=== PATIENT | female | born 1990 | race Caucasian/White ===

== ENCOUNTER 2025-07-24 14:53 | Outpatient (AMB) | payer OTHER, SELFPAY ==
--- NOTE | 2025-07-24 14:55 | A.OFFVIS_ITS ---
Vital Signs 07/24/25 15:05 Height 5 ft 5 in Weight 180 lb BMI 30.0 BP 159/99 H Blood Pressure Location Rt brachial Position Sitting Respiration 16 Pulse 93 Pulse Source Pulse Oximeter Intake Visit Reasons: PER MZK/ NEW MIGRAINE RX? Clinical Support Associate Required: Yes Clinical Support Associate Services: Clinical Support Associate Present Clinical Support Associate Name: Jono ID [id number] Information Interpreted: non-clinical & clinical Accompanied by: Father in Law Allergies No Known Allergies Allergy (Verified 07/24/25 15:05) HPI Comments Details: Nataliya is a 34-year-old female patient with a past medical history of pineal cyst and migraine who was last seen in the clinic in January of 2025. At that time it is noted that in the past with the she has had relief of her headaches. Most recently she was placed back on topiramate 50 mg daily however she has had some difficulty in taking these medications. She had an MRI in 2019 which showed a pineal cyst but was otherwise normal. She is currently experiencing headaches on a daily basis lasting at least 12 h ours throughout the day. She will often awaken from sleep around 3am with a headache and then take sumatriptan. For several hours she may have some improvement but headaches often return later that day. She has been taking sumatriptan on average 3 days per week. She will often take the sumatriptan with alive. Headaches are described as pounding and can be variable in terms of intensity. They are primarily located to the left frontal area. When headaches become severe, she can have nausea and vomiting. She denies any light or sound sensitivities or dizziness. She does not have any visual changes or visual auras. Sleep: Sleep can be difficult because she does have an 8-month-old child and another younger child at home. She does not snore that she is aware of. Past medication trials: Amitriptyline- No significant benefit Topiramate- No significant benefit Propranolol- No significant benefit Sumatriptan-works well in conjunction with Aleve. 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 Left frontal white matter periventricular nonenhancing lesion. [facility] Medical History (Updated 07/27/25 @ 09:20 by Nany Wilkerson CNP) Stress Insomnia Obesity Migraine without aura Review of Systems Const All systems reviewed & are unremarkable except as noted in HPI and below Physical Exam Vital Signs: Last Vital Signs Pulse 93 07/24/25 15:05 Resp 16 07/24/25 15:05 BP 159/99 H 07/24/25 15:05 BMI result Body Mass Index 30.0 Const General: cooperative, healthy appearing, comfortable and no acute distress Nutritional Appearance: well nourished Orientation/consciousness: patient oriented x3 Limitations: no limitations HEENT Head: Yes normal to inspection and Yes normocephalic Eyes General: appearance normal, both eyes and all related structures Visual Mohr: normal visual mohr by confrontation Alignment and Position: alignment normal Periorbital: periorbital findings normal Eyelids: Yes eyelids normal Conjunctivae: conjunctivae normal Sclerae: sclerae normal Neck Neck: Yes normal visual inspection and Yes full ROM General: Yes no CVA tenderness Back/Spine/Pelvis Back: no CVA tenderness Cervical Spine: normal cervical lordosis Thoracic/Lumbar Spine: thoracic and lumbar spine normal to inspection Neuro General: patient oriented x3 Cranial nerves: Yes CN's II-XII intact bilaterally Cognition (Neuro): normal cognition Gait exam (Neuro): Normal gait present Motor exam (neuro): no tremor noted Pupils: Normal pupillary reactivity/response: bilateral Psych Appearance: grossly normal Mental Status: mental status grossly normal Speech and movement: Normal speech and movement present and Clear speech present Affect: normal affect Attitude: cooperative Thought process: Normal thought process present Thought content: Normal thought content present Insight: Good insight present (Psych) Judgement: Good judgement present (Psych) Assessment & Plan Assessment & Plan (1) Chronic migraine without aura without status migrainosus, not intractable: Code(s): G43.709 - Chronic migraine without aura, not intractable, without status migrainosus Category: Medical Plan Nataliya is a 34-year-old female patient with a past medical history of pineal cyst and migraine who has been more recently experiencing more frequent migraines. She was not able to take/tolerate the topiramate given to her at last visit. She would prefer a medication that is not required to take daily. I will start her on a trial of Aimovig 70 mg monthly. There was likely some level of medication overuse headache given her frequent use of sumatriptan. She was educated on this and asked to limit the use of sumatriptan to no more than 2-3 days per week. I am hoping that with the Aimovig she is able to reduce its use. Sleep has also been difficult which may be playing a role. Because she does have history of a pineal cyst and she has not had any recent imaging, I will order an MRI of the brain with and without contrast in the setting of worsening headache to evaluate the previous findings. She does report vomiting in the past with prior MRIs with contrast. I will send premed rx to her pharmacy. -Limit the use of sumatriptan to no more than 2-3 days per week to avoid MOH -Start a trial of Aimovig 70mc sc monthly injection -MRI brain with and without contrast to evaluate previous findings -Reports possible vomiting with contrast in the past. Will send medications for pre-med Coding Level of Care Code Est Pt Level 4 (50156) Diagnoses Chronic migraine without aura without status migrainosus, not intractable G43.709
--- OUTSIDE RECORDS SUMMARY | 2025-07-24 14:57 | XMS_ITS | Clinical Summary ---
Author Organization [address] Address [address] [place] [phone] Phone Care Team Providers Care Caster Operator Name Role Phone Gee Colon MD Primary Care Provider [phone] Allergies No known active allergies Medications ketoconazole (NIZORAL) 2 % shampoo Apply 5-10 mL to wet scalp, lather, leave on 3-5 minutes, and rinse; apply 2x weekly for 2-4 weeks Active norethindrone (NICOLETTE,AGATA,H EATHER,MICRONOR ) 0.35 mg tablet Take 1 tablet (0.35 mg total) by mouth 1 (one) time each day. 5 Active triamcinolone (KENALOG) 0.025 % cream Apply thin layer to affected area BID for 2 weeks then stop. Avoid face and groin. 30 g 5 Active ceramide 1,3,6-II-salicy lic-B3 (CeraVe SA, with niacinamide,) cream Apply 2 g topically 2 (two) times a day. 200 g 1 5 Active ammonium lactate (AmLactin) 12 % lotion Apply topically if needed for dry skin (arms). 400 g 5 12/11/19 26 Active acetaminophen (TYLENOL) 500 mg tablet Take 1 tablet (500 mg total) by mouth every 6 (six) hours if needed (pain). 60 tablet 5 Active SUMAtriptan (IMITREX) 50 mg tablet take 1 tablet by mouth once daily as needed for 30 days 5 Active cholecalciferol (VITAMIN D-3) 50 mcg (2,000 unit) tablet Take 1 tablet (2,000 Units total) by mouth 1 (one) time each day. 90 tablet 1 5 Active Active Problems Problem Noted Date Diagnosed Date Asthma 07/25/2024 Vitamin D deficiency 07/25/2024 Dyslipidemia 07/25/2024 Generalized headaches 07/25/2024 Migraine 07/25/2024 Missed 07/25/2024 Incomplete 07/25/2024 Immunizations Immunization Administration Dates Next Due HPV 9-valent (Gardisil) 9yo to less than 46yo 04/05/2023,12/06/2022,10/05/2022 Influenza trivalent, with pr eservative (Fluzone; Afluria) 6mo and older 09/10/2015 PPD Test 09/10/2015 Pneumococcal polysaccharide 23 valent (Pneumovax 23) 2yo and older 06/03/2019 Tdap Tetanus diptheria acell ular pertussis (Boostrix; Adacel) 7yo and older 03/06/2018,09/10/2015 Surgical History Surgery Date Site/Laterality Comments OTHER SURGICAL HISTORY 08/29/2023 Right PROCEDURE: HISTORICAL D&C; COMMENT: Incomplete Medical History Medical History Date Comments Asthma DX:Asthma Vitamin D deficiency 09/04/2013 DX:Vitamin D deficiency Generalized headaches 08/07/2018 DX:General ized headaches GBS (group B Streptococcus c arrier), +RV culture, currently 05/06/2018 DX: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), +RV culture, currently ; COMMENT: 05/03/2018 Treat in labor Family history of breast can cer in mother 09/04/2013 DX:Family history of breast cancer in mother Dyslipidemia 09/04/2013 DX:Dyslipidemia 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; COMMENT: FOB needs testing / He is not around We discussed the possibility of carrier vs disease and further testing and declines Migraine DX:Migraine Family History Medical History Relation Name Comments Eczema Brother Colon polyps Father No Known Problems Maternal Grandfather Diabetes Maternal Grandmother arthrit is Breast cancer Mother diagnosed at 4 2-now w/ metastatic disease (neg for BRCA), HTN, CAD, fibromyalgia Throat cancer Paternal Grandfather No Known Problems Paternal Grandmother Relation Name Status Comments Brother Alive Father Alive Maternal Grandfather Maternal Grandmother Alive Mother Paternal Grandfather Paternal Grandmother Social History Tobacco Use Types Packs/Day Years Used Date Smoking Tobacco: Never Smokeless Tobacco: Never Alcohol Use Standard Drinks/Week Comments Not Currently 0 (1 standard drink = 0.6 oz pur e alcohol) Housing Instability Answer Date Recorde d Are you worried that in the next 2 months you may not have stable housing? No 02/24/2025 Food Access & Nutrition Answer Date Rec orded Do you have access to a vari ety of food including fruits and vegetables? Yes 02/24/2025 Access to Healthcare Answer Date Record ed Within the last 3 months, ho w many times did you visit the emergency department for your medical care? 0 02/24/2025 Health Literacy Answer Date Recorded How often do you need to hav e someone help you when you read instructions, pamphlets, or other written material from your doctor or pharmacy? Never 02/24/2025 Caregiver: How often do you need to have someone help you when you read instructions, pamphlets, or other written material from your doctor or pharmacy? Not on file 02/24/2025 Financial Risk Answer Date Recorded How hard is it for you to pa y for the very basics like food, housing, medical care, and air conditioning / heating? Not very hard 02/24/2025 Transportation Answer Date Recorded Has the lack of transportati on kept you from meetings, work, or from getting things needed for daily living? No Has the lack of transportati on kept you from medical appointments or from getting medications? No 02/24/2025 Social Isolation Answer Date Recorded How often do you feel lonely or isolated from th ose around you? Never 02/24/2025 Food Risk Answer Date Recorded Within the past 12 months we worried whether our food would run out before we got money to buy more. Never true 02/24/2025 Within the past 12 months th e food we bought just didn't last and we didn't have money to get more. Never true 02/24/2025 Dependent Care Answer Date Recorded Do you need help finding or paying for care for your loved ones. For example, early childhood or elderly care for an older adult? No 02/24/2025 Education Answer Date Recorded Do you think completing more education or training, like finishing a GED, going to college, or learning a trade, would be helpful for you? No 02/24/2025 Employment and Income Answer Date Recor ded During the last four weeks, have you been actively looking for work? No 02/24/2025 Living Situation Answer Date Recorded What is your living situation? Unrecognized valu e 02/24/2025 Comments Unknown Sex and Gender Information Value Date Recorded Sex Assigned at Not on file Legal Sex Female 4:33 AM EST Gender Identity Not on file Sexual Orientation Not on file Obstetrics History Last Filed Vital Signs Vital Sign Reading Time Taken Comments Blood Pressure 128/84 02/18/2025 1:38 PM EDT Pulse 78 02/18/2025 1:06 PM EDT Temperature 36.3 C (97.4 F) 02/18/2025 1:06 PM EDT Respiratory Rate - - Oxygen Saturation 99% 02/18/2025 1:06 PM EDT Inhaled Oxygen Concentration - - Weight 89.8 kg (198 lb) 02/18/2025 1:06 PM EDT Height 165.1 cm (5' 5 ) 02/18/2025 1:06 PM EDT Body Mass Index 32.95 02/18/2025 1:06 PM EDT Plan of Treatment Upcoming Encounters Date Type Department Care Team (Late st Contact Info) Description 02/19/2026 4:00 PM EDT Office Visit Adult Medicine [address] [phone] Gee Colon MD [address] [place] [phone] Health Maintenance Due Date Last Done Comments Hepatitis B Vaccines (1 of 3 - 19+ 3-dose series) 12/27/2007 Pneumococcal Vaccine: Pediatrics (0 to 5 Years) and At-Risk Patients (6 to 49 Years) (2 of 2 - PCV) 06/03/2020 06/03/2019 HIV Screening 09/30/2022 COVID-19 Vaccine ( season) 2025 08/31/2022, 11/23/2021, 12/21/2020, Additional history exists Influenza Vaccine (#1) 2025 09/10/2015 Social Influencers of Health Screening 02/24/2026 02/24/2025, 02/18/2025 Cervical Cancer Screening: HPV 09/27/2026 09/27/2021 Cholesterol Screening (Lipid Panel) 12/11/2029 12/11/2024, 05/11/2022 DTaP,Tdap,and Td Vaccines (4 - Td or Tdap) 08/11/2034 08/11/2024, 03/06/2018, 09/10/2015 Hepatitis C Screening Completed 09/10/2015 HPV Vaccines Completed 04/05/2023, 11/22, 10/05/2022 RSV Immunization Adult Patients Completed 09/22/2024 Depression Screening Completed 12/10/2024 HIB Vaccines Aged Out No longer eligi ble based on patient's age to complete this topic Hepatitis A Vaccines Aged Out No long er eligible based on patient's age to complete this topic IPV Vaccines Aged Out No longer eligi ble based on patient's age to complete this topic MMR Vaccines Aged Out No longer eligi ble based on patient's age to complete this topic Meningococcal ACWY Vaccine Aged Out N o longer eligible based on patient's age to complete this topic Meningococcal B Vaccine Aged Out No l onger eligible based on patient's age to complete this topic RSV Immunization Patients Under 20 months Aged Out No longer eligible based on patient's age to complete this topic Varicella Vaccines Aged Out No longer eligible based on patient's age to complete this topic Procedures Procedure Name Priority Date/Time Associated Diagnosis Comments LIPID PANEL WITH REFLEX TO DIRECT LDL Routine 12/11/2024 10:24 AM EST Dyslipidemia HPV Routine 09/27/2021 HEPATITIS C SCREENING Routine 09/10/2015 from Last 3 Months or Most Recently Relevant to Health Maintenance Results * (ABNORMAL) Lipid panel with reflex to direct LDL (12/11/2024 10:24 AM EST) Cholesterol 219(H) 0 - 200 mg/dL LAB CHEMISTRY METHOD 12/11/2024 2:23 PM EST [facility] Triglycerides 169(H) 0 - 150 mg/dL LAB CHEMISTRY METHOD 12/11/2024 2:23 PM EST [facility] HDL 76 >=40 mg/dL LAB CHEMISTRY METHOD 12/11/2024 2:23 PM [facility] LDL Calculated 109(H) 0 - 100 mg/dL LAB CHEMISTRY METHOD 12/11/2024 2:23 PM EST [facility] VLDL Cholesterol [place] 33.8 mg/dL LAB CHEMISTRY METHOD 12/11/2024 2:23 PM EST [facility] Non HDL Chol. (LDL+VLDL) 143 <145 mg/dL LAB CHEMISTRY METHOD 12/11/2024 2:23 PM [facility] Chol/HDL Ratio 2.9 0.0 - 4.4 LAB CHEMISTRY METHOD 12/11/2024 2:23 PM EST [facility] Blood Venous blood specimen / Unknown Venipuncture / Unknown 12/11/2024 10:24 AM EST 12/11/2024 10:24 AM EST [facility] LAB BLOOD ORDERABLES Fi nal Result [facility] [address] [place] [address], * Cervical Cancer Screening: HPV (09/27/2021) Pathologist [facility] Cervical Cancer Screening: HPV negative abstracted Historical Provider HEALTH MAINTENANCE Final Result * Hepatitis C Screening (09/10/2015) Pathologist [facility] Hepatitis C Screening abstracted Historical Provider HEALTH MAINTENANCE Final Result from Last 3 Months or Most Recently Relevant to Health Maintenance Insurance [facility] [employer] Care Teams Caster Operator Relationship Specialty Start Date End Date Gee Colon MD [address] [place] [phone] PCP - General Internal Medicine 08/26/24
--- OUTSIDE RECORDS SUMMARY | 2025-07-24 14:57 | XMS_ITS ---
Author Name [facility] Organization Unknown Care Team Organization Name Specialty Phone Email Start Date End Da te [facility] SABA CELIS Primary Care 12/27/2022 [facility] Alessio Beavers Primary Care 08/29/20222023
[2025-07-24 15:05] VITALS: BP 159/99; PULSE 93; RESP 16
== END 2025-07-24 15:40 | disposition home or self-care (01) ==
LOC: HO.HSM 14:53
PROVIDERS: PCP Internal Medicine; Visit Provider Nurse Practitioner
DX: G43.709 Chronic migraine without aura, not intractable, without status migrainosus (principal)
CPT/HCPCS: 99214

== ENCOUNTER → 2025-07-24 14:53 | Outpatient (BNVA) | payer OTHER, SELFPAY | PROVIDERS: PCP Internal Medicine; Visit Provider Nurse Practitioner | DX: G43.709 Chronic migraine without aura, not intractable, without status migrainosus (principal) | CPT/HCPCS: 99212 ==

== ENCOUNTER 2025-08-08 13:54 | Outpatient (REF) | payer OTHER, SELFPAY ==
--- NOTE | ~2025-08-08 | MR_ITS ---
EXAMINATION: MR BRAIN WITHOUT AND WITH CONTRAST CLINICAL INFORMATION: G43.709. Chronic migraine without aura. COMPARISON: None available. TECHNIQUE: Multiplanar, multisequence MRI of the brain was obtained before and after the intravenous administration of 8.5 mL gadolinium based (Gadavist) without reported immediate complications. FINDINGS: No restricted diffusion. No acute intracranial hemorrhage, mass effect, midline shift, hydrocephalus or herniation. Arias-white matter differentiation is normal. Posterior cranial fossa contents demonstrated no signal abnormality or mass effect. Bilateral, a few scattered, nonspecific, subcortical deep white matter hyperintense T2 FLAIR signal foci involving centrum semiovale and de la o radiata. Flow-void signal within the main cerebral vessels is normal. There is a small cavum septa pellucida and, congenital variant. No abnormal enhancement within the intra-axial or the extra-axial compartment of the cranium. Sellar/suprasellar region is normal. Craniocervical junction demonstrates normal position of the cerebellar tonsils. MR/MR head/brain wo/w con IMPRESSION: Nonspecific white matter T2 FLAIR signal which could be seen patients with migraines. No acute brain abnormality. No abnormal enhancement. Electronically signed by: Pawel Lara MD 08/10/2025 07:40 AM EDT
== END 2025-08-08 13:55 | disposition home or self-care (01) ==
LOC: HO.MRI 13:54
PROVIDERS: Visit Provider Nurse Practitioner
DX: G43.709 Chronic migraine without aura, not intractable, without status migrainosus (principal); E34.8 Other specified endocrine disorders
CPT/HCPCS: 70553; A9585

== ENCOUNTER → 2025-08-08 13:56 | Outpatient (BNV) | payer OTHER, SELFPAY | PROVIDERS: Visit Provider Radiology Diagnostic Radiology | DX: G43.709 Chronic migraine without aura, not intractable, without status migrainosus (principal) | CPT/HCPCS: 70553 ==

== ENCOUNTER 2025-09-16 13:24 | Outpatient (AMB) | payer OTHER, SELFPAY ==
--- NOTE | 2025-09-16 13:19 | A.OFFVIS_ITS ---
Intake Visit Reasons: Elevante BP due to Meds Shortage Worker Required: Yes Shortage Worker Services: Shortage Worker Present Shortage Worker Name: Adrianne Garcia Information Interpreted: non-clinical & clinical Allergies gadobutrol (From Gadavist) Adverse Reaction (Verified 08/08/25 14:45) Nausea and Vomiting HPI Comments Details: Nataliya is a 34-year-old female patient with a past medical history of pineal cyst and migraine who was last seen in the clinic in July of 2025. She had somewhat but and recently prescribed topiramate 50 mg daily at that time though had difficulty tolerating this medication. She had an MRI in 2018 which showed a pineal cyst but was otherwise normal. She explained that she was experiencing headaches on a daily basis lasting at least 12 hours throughout the day. She will often awaken from sleep around 3am with a headache and then take sumatriptan. For several hours she may have some improvement but headaches often return later that day. She has been taking sumatriptan on average 3 days per week. She will often take the sumatriptan with alive. Headaches are described as pounding and can be variable in terms of intensity. They are primarily located to the left frontal area. When headaches become severe, she can have nausea and vomiting. She denies any light or sound sensitivities or dizziness. She does not have any visual changes or visual auras. Sleep: Sleep can be difficult because she does have an 8-month-old child and another younger child at home. She does not snore that she is aware of. At the time of our last office visit, I started her on Aimovig 70 mg once monthly and ordered an MRI of the brain for worsening of her headaches. She called the office to report that after starting her Ajovy injection on Sunday, she developed a more severe holocephalic headache and went to the emergency room at which time her blood pressure was noted to be significantly elevated. She did go to [facility] and I do not have records to review at this time. She tells me that they did a CT scan to check for ?clot?. This was negative. She has a lot of hesitancy to take any further injectable therapies given the possible hypertensive response. She does note that she also started oral contraceptives proximally 11 months ago when her son was born. She wonders if there is a correlation between her OCP and her headaches. Past medication trials: Amitriptyline- No significant benefit Topiramate- No significant benefit Propranolol- No significant benefit Sumatriptan-works well in conjunction with Aleve. 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 Left frontal white matter periventricular nonenhancing lesion. [facility] Medical History (Updated 09/16/25 @ 13:46 by Nany Wilkerson CNP) Stress Insomnia Obesity Migraine without aura Review of Systems Const All systems reviewed & are unremarkable except as noted in HPI and below Physical Exam Exam Exam: Deferred due to mode of visit Telehealth Telehealth Telehealth Platform: Other (please specify) (dial-out with official court interpreter ) Location of provider rendering services: practice address Location of patient: address on file Patient Identification confirmed using: Name, : Yes Telehealth method: voice only Patient verbally consented to treatment: Yes Patient verbally consented to billing insurance company: Yes Patient informed of any privacy concerns related to visit: Yes Minutes spent on Phone/Video with Pt.: 16 Assessment & Plan Assessment & Plan (1) Chronic migraine without aura without status migrainosus, not intractable: Code(s): G43.709 - Chronic migraine without aura, not intractable, without status migrainosus Category: Medical (2) Elevated BP reading w/ no diagnosis of HTN: Code(s): R03.0 - Elevated blood-pressure reading, without diagnosis of hypertension Category: Medical Plan Nataliya is a 34-year-old female patient with a past medical history of pineal cy st and migraine who was last seen in the clinic in July of 2025. At the time of her last visit, she was started on Aimovig but the day after her initial injection she developed worsening of headache and went to the emergency room at which time she was noted to have significant hypertension. These types of medications can potentially cause new onset or worsening of hypertension and therefore I will discontinue. At time of her last visit her blood pressure was also elevated and therefore it may be reasonable to try verapamil for her migraines that may also benefit her blood pressure. I will hold off on any further injectable anti CGRP therapies but in the future, we could still consider Nurtec or Qulipta for prevention. We could also consider Botox which I did mentioned to her during today's visit though she is very hesitant to try Botox because of the injection component. For now, we will try verapamil 120 mg nightly and she can continue sumatriptan sparingly for acute therapy. I have asked her to return to clinic in 6 weeks for a physical visit where we can recheck her blood pressure. -Start a trial of verapamil 120mg nightly -Continue sumatriptan for acute therapy -Consider nurtec or qulipta if verapamil is not beneficial Medications: New verapamil ER 120 mg PO BEDTIME 30 caps 5RF 30 days Discontinued erenumab-aooe (Aimovig Autoinjector) Discontinued Reason: Doctor's Order 70 mg subcut QMONTH 1 mL 5RF Coding Level of Care Code Tele Est Pt Level 3 (83325) Diagnoses Chronic migraine without aura without status migrainosus, not intractable G43.709 Elevated BP reading w/ no diagnosis of HTN R03.0
== END 2025-09-16 13:47 | disposition home or self-care (01) ==
LOC: HO.HSM 13:25
PROVIDERS: Visit Provider Nurse Practitioner
DX: G43.709 Chronic migraine without aura, not intractable, without status migrainosus (principal); R03.0 Elevated blood-pressure reading, without diagnosis of hypertension
CPT/HCPCS: 99213